=== PATIENT | male | born 1975 | race Caucasian/White ===

== ENCOUNTER 2020-02-01 12:26 | Emergency (ER) | payer OTHER ==
[~2020-02-01] VITALS: Ht 182.9 cm; Wt 154.2 kg
[2020-02-01 12:35] VITALS: BP 146/79
[2020-02-01 13:36] VITALS: BP 146/79
== END 2020-02-01 13:35 | disposition home or self-care (01) ==
LOC: MED 12:26
DX: R05 Cough (principal); Z20.828 Contact with and (suspected) exposure to other viral communicable diseases; F17.210 Nicotine dependence, cigarettes, uncomplicated; Z71.6 Tobacco abuse counseling
CPT/HCPCS: 71045; 99284; U0003

== ENCOUNTER 2022-02-09 09:08 | Emergency (ER) | payer OTHER ==
[~2022-02-09] VITALS: Ht 182.9 cm; Wt 135.2 kg
[2022-02-09 09:24] VITALS: BP 136/97
--- NOTE | 2022-02-09 09:26 | NUR ---
Patient ambulated to bed 12 with steady/even gait.
--- NOTE | 2022-02-09 09:30 | NUR ---
46 y/o M BIB self from home c/o abscess to left groin region x 2-3 days. Patient states abscess increasing in size; went from hard to soft and "now it feels like it wants to pop." Patient states 8/10, throbbing/constant, non-radiating pain worsening with sitting. Redness noted to abscess site. Denies fever, chills, extremity pain. No drainage noted. Bed locked in lowest position, side rails x 1. PMH: pre-DM Meds: metformin, insulin NKDA
[2022-02-09] MEDS ORDERED: LIDOCAINE MPF 1% 5 ML ONE (09:32)
--- NOTE | 2022-02-09 09:33 | NUR ---
Dr. Renee is evaluating patient for I&D
--- NOTE | 2022-02-09 09:37 | NUR ---
Verbal order received for Xylocaine 1% 50mg/5mL vial for I&D per Dr. Renee.
[2022-02-09] MEDS ORDERED: LIDOCAINE MPF 1% 10 MG/ML VIAL INJ ONE (09:40)
[2022-02-09] MEDS ORDERED: CEPH-588 PO (09:51)
--- NOTE | 2022-02-09 10:08 | NUR ---
Patient discharged with v/s stable. Written and verbal after care instructions given and explained. Patient alert, oriented and verbalized understanding of instructions. Ambulatory with steady gait. All questions addressed prior to discharge. ID band removed. Patient advised to follow up with PMD. Rx of Keflex given. Patient educated on indication of medication including possible reaction and side effects. Opportunity to ask questions provided and answered. Work note provided for 02/09/22-02/12/22.
== END 2022-02-09 10:08 | disposition home or self-care (01) ==
LOC: MED 09:08
DX: L02.214 Cutaneous abscess of groin (principal); E11.9 Type 2 diabetes mellitus without complications; Z79.4 Long term (current) use of insulin; Z79.899 Other long term (current) drug therapy
CPT/HCPCS: 10060; 99283; J2001

== ENCOUNTER 2022-02-13 10:44 | Emergency (ER) | payer OTHER ==
[~2022-02-13] VITALS: Ht 182.9 cm; Wt 138.3 kg
[~2022-02-13 10:44] MED LIST: CEPH-588 PO
[2022-02-13 10:58] VITALS: BP 140/78
--- NOTE | 2022-02-13 11:25 | NUR ---
46 Y/O MALE BIB SELF PRESENTS TO THE ED FOR RECHECK OF HIS OPENED ABSCESS IN THE RIGHT BUTTOCK. PER PT HE HAD A INCISION AND DRAINAGE, DONE ON FEBRUARY 09. NO REDNESS, SWELLING, FEVERS, PAIN NOTED ON THE AREA. NOTED PURULENT DRAINAGE ON THE AREA NKA PMH: UMBILICAL HERNIA
--- NOTE | 2022-02-13 11:45 | NUR ---
Patient ambulated to bed 4 with steady gait.
--- NOTE | 2022-02-13 11:49 | NUR ---
BUS MATRON AT PT SIDE FOR REMOVAL OF ABSCESS PACKING.
--- NOTE | 2022-02-13 11:49 | NUR ---
AUBREE CAMPOS AT BEDSIDE FOR EVAL AND PROCEDURE
--- NOTE | 2022-02-13 11:55 | NUR ---
NON ADHERENT PLACED TO PT L UPPER THIGH/ BUTTOCK. PT GIVEN EXTRA NON ADHERENT DRESSINGS AND TAPE
[2022-02-13 12:10] VITALS: BP 127/83
--- NOTE | 2022-02-13 12:10 | NUR ---
Patient discharged with v/s stable. Written and verbal after care instructions given. Patient verbalized understanding. Ambulatory with steady gait. All questions addressed prior to discharge. Advised to follow up with PMD. WORK NOTE HANDED TO PATIENT.
--- NOTE | 2022-02-13 12:11 | NUR ---
The patient's care was reviewed and supervised by Lucy Maya RN.
== END 2022-02-13 12:10 | disposition home or self-care (01) ==
LOC: MED 10:44
DX: L02.31 Cutaneous abscess of buttock (principal); E11.9 Type 2 diabetes mellitus without complications; Z79.899 Other long term (current) drug therapy; Z98.890 Other specified postprocedural states
CPT/HCPCS: 99281

== ENCOUNTER 2022-02-23 10:30 | Emergency (ER) | payer OTHER ==
[~2022-02-23] VITALS: Ht 182.9 cm; Wt 138.3 kg
[2022-02-23 10:33] VITALS: BP 150/94
--- NOTE | 2022-02-23 10:37 | NUR ---
PT AMBULATED TO ER BED 1
--- NOTE | 2022-02-23 10:45 | NUR ---
Dr Preciado at bedside for evaluation
--- NOTE | 2022-02-23 10:50 | NUR ---
46 y/o male c/o of runny nose, cough, body aches, and malaise x yesterday afternoon. Pt also with nausea w/out vomiting, headache, and subjective fever and chills. Denies sick contacts. Took Advil PM and Mucinex with some relief, denies taking medication for pain. NKA pmh: umbilical hernia, DM, HTN
--- NOTE | 2022-02-23 11:01 | NUR ---
covid (erick) + flu collected and walked to lab
[2022-02-23] MEDS ORDERED: NIRM1TAB PO (11:52)
[2022-02-23] MEDS ORDERED: IBUP-2213 PO (11:52)
[2022-02-23 12:10] VITALS: BP 150/94
--- NOTE | 2022-02-23 12:10 | NUR ---
Patient discharged with v/s stable. Written and verbal after care instructions about COVID-19 given and explained. Patient alert, oriented and verbalized understanding of instructions. Ambulatory with steady gait. All questions addressed prior to discharge. ID band removed. Patient advised to follow up with PMD. Rx of Ibuprofen, Paxlovid given. Patient educated on indication of medication including possible reaction and side effects. Opportunity to ask questions provided and answered.
== END 2022-02-23 12:10 | disposition home or self-care (01) ==
LOC: MED 10:30
DX: U07.1 COVID-19 (principal); E11.9 Type 2 diabetes mellitus without complications; I10 Essential (primary) hypertension; Z79.899 Other long term (current) drug therapy
CPT/HCPCS: 99283

== ENCOUNTER 2022-03-01 11:51 | Emergency (ER) | payer OTHER ==
[~2022-03-01] VITALS: Ht 152.4 cm; Wt 134.5 kg
[~2022-03-01 11:51] MED LIST changes: +IBUP-2213 PO; +NIRM1TAB PO
[2022-03-01 12:02] VITALS: BP 125/78
[2022-03-01 12:32] VITALS: BP 125/78
== END 2022-03-01 12:32 | disposition home or self-care (01) ==
LOC: MED 11:51
DX: B34.9 Viral infection, unspecified (principal); R05.9 Cough, unspecified; E11.9 Type 2 diabetes mellitus without complications; I10 Essential (primary) hypertension; Z79.899 Other long term (current) drug therapy
CPT/HCPCS: 99281

== ENCOUNTER 2022-06-04 09:37 | Emergency (ER) | payer OTHER ==
[~2022-06-04] VITALS: Ht 182.9 cm; Wt 142.0 kg
[2022-06-04 09:48] VITALS: BP 148/92
[2022-06-04 13:06] LABS: BASOPHILS % (AUTO) 0.2 % (0.0-2.0); EOSINOPHILS # (AUTO) 0.5 K/uL (0-0.4); EOSINOPHILS % (AUTO) 3.5 % (0.0-4.0); HEMATOCRIT 52.5 % (36-52); HEMOGLOBIN 17.6 g/dL (12.0-18.0); LYMPHOCYTES # (AUTO) 2.1 K/uL (2.0-11.5); LYMPHOCYTES % (AUTO) 13.5 % (20.5-51.1); MEAN CORPUSCULAR HEMOGLOBIN 28 pg (27-31); MEAN CORPUSCULAR HGB CONC 33 g/dL (33-37); MEAN CORPUSCULAR VOLUME 82.2 fL (80-94); MONOCYTES # (AUTO) 1.1 K/uL (0.8-1.0); MONOCYTES % (AUTO) 7.3 % (1.7-9.3); NEUTROPHILS # (AUTO) 11.7 K/uL (1.8-7.7); NEUTROPHILS % (AUTO) 75.5 % (42.2-75.2); PLATELET COUNT (AUTO) 427 K/uL (140-450); RED BLOOD CELL COUNT(AUTO) 6.39 MIL/uL (4.20-6.10); RED CELL DISTRIBUTION WIDTH 13.5 % (11.6-13.7); WHITE BLOOD COUNT (AUTO) 15.5 K/uL (4.8-10.8)
[2022-06-04 13:30] LABS: ALBUMIN 3.9 g/dL (3.4-5.0); ANION GAP 15.9 (8-16); CARBON DIOXIDE 24.1 mmol/L (21-32); CREATININE 0.9 mg/dL (0.6-1.3); MAGNESIUM 1.7 mg/dL (1.8-2.4); PHOSPHORUS 4.5 mg/dL (2.5-4.9); TOTAL BILIRUBIN 0.4 mg/dL (0.0-1.0)
[2022-06-04] MEDS ORDERED: LOPE1TAB14 PO (13:52)
--- NOTE | 2022-06-04 13:57 | NUR ---
Patient discharged with v/s stable. Written and verbal after care instructions given and explained. Patient alert, oriented and verbalized understanding of instructions. Ambulatory with steady gait. All questions addressed prior to discharge. ID band removed. Patient advised to follow up with PMD. Rx of IMMODIUM given. Patient educated on indication of medication including possible reaction and side effects. Opportunity to ask questions provided and answered.
== END 2022-06-04 13:57 | disposition home or self-care (01) ==
LOC: MED 09:37
DX: R19.7 Diarrhea, unspecified (principal); I10 Essential (primary) hypertension; E11.9 Type 2 diabetes mellitus without complications; Z79.4 Long term (current) use of insulin; Z79.899 Other long term (current) drug therapy
CPT/HCPCS: 36415; 80053; 83735; 84100; 85025; 99283